=== PATIENT | female | born 2000 | race Two or more races ===

== ENCOUNTER 2018-12-20 21:01 | Emergency (ER) | payer OTHER ==
[2018-12-20 21:14] VITALS: BP 151/95
--- NOTE | 2018-12-20 22:20 | ER Document Report ---
ED Medical Screen (RME) - General Chief Complaint: Dog Bite Stated Complaint: DOG BITE/SCRATCHES Time Seen by Provider: 12/20/18 21:31 Mode of Arrival: Ambulatory Information source: Patient Notes: 18-year-old female presented to ED for complaint of scratches to arms and feet after a rescue dog scratched her with his teeth on Friday. She states she took the dog to the [facility] on Friday to get its rabies shots because that is when they were do and they told her she needed to wait 10 days before getting the shots. She states she has not had any signs or symptoms or infection any fevers but today she started having body aches headaches and chest pain and she is concerned these are symptoms of rabies. She states the dog has been in foster care for the over a month but the dog had not had any shots. She states before the rescue care the dog was a stray. I have consulted Dr. Gordillo he stated he would take over the care of the patient. I have greeted and performed a rapid initial assessment of this patient. A comprehensive ED assessment and evaluation of the patient, analysis of test results and completion of medical decision making process will be conducted by an additional ED providers. Dictation of this chart was performed using voice recognition software; therefore, there may be some unintended grammatical errors. TRAVEL OUTSIDE OF THE [place] IN LAST 30 DAYS: Yes - [place] Past Medical History Renal/ Medical History: Denies: Hx Peritoneal Dialysis Physical Exam - Vital signs Vitals: Temp Pulse Resp BP Pulse Ox 98.9 F 110 H 18 151/95 H 98 12/20/18 21:12 12/20/18 21:12 12/20/18 21:12 12/20/18 21:12 12/20/18 21:12 Course - Vital Signs Vital signs: Temp Pulse Resp BP Pulse Ox 98.9 F 110 H 18 151/95 H 98 12/20/18 21:12 12/20/18 21:12 12/20/18 21:12 12/20/18 21:12 12/20/18 21:12
--- NOTE | 2018-12-21 00:25 | ER Document Report ---
ED Animal Bite - General Chief Complaint: Dog Bite Stated Complaint: DOG BITE/SCRATCHES Time Seen by Provider: 12/20/18 21:31 Primary Care Provider: TAMI LEONE MD [Primary Care Provider] - Follow up as needed Mode of Arrival: Ambulatory Information source: Patient TRAVEL OUTSIDE OF THE [place] IN LAST 30 DAYS: Yes - [place] - HPI Location of injury: RUE, RLE Severity of injury: Scratched Onset: Other - 5 days ago. Where did incident occur: Home Quality of pain: No pain Pain Level: Denies Severity: None Context of attack: Playing with animal Summary of what happened: Patient said her puppy which she adopted from a assisted 6 days ago scrached her on her right upper and lower extremity 5 days ago. The abrasion is healing well but she came in because she is afraid of rabies. The puppy lives with her in the house. No change in behavior of the dog since the incident. Type of animal: Dog - Puppy. Appearance of animal: Appeared well Animal's immunizations: Unknown Animal captured or known: Yes - Related Data Allergies/Adverse Reactions: No Known Allergies Allergy (Unverified 12/21/18 00:20) Past Medical History - General Information source: Patient - Social History Smoking Status: Never Smoker Family History: Reviewed & Not Pertinent Patient has suicidal ideation: No Patient has homicidal ideation: No Renal/ Medical History: Denies: Hx Peritoneal Dialysis Review of Systems - Review of Systems Constitutional: No symptoms reported EENT: No symptoms reported Cardiovascular: No symptoms reported Respiratory: No symptoms reported Gastrointestinal: No symptoms reported Genitourinary: No symptoms reported Female Genitourinary: No symptoms reported Musculoskeletal: No symptoms reported Skin: Other - Abrasion. Hematologic/Lymphatic: No symptoms reported Neurological/Psychological: No symptoms reported -: Yes All other systems reviewed and negative Physical Exam - Vital signs Vitals: Temp Pulse Resp BP Pulse Ox 98.9 F 110 H 18 151/95 H 98 12/20/18 21:12 12/20/18 21:12 12/20/18 21:12 12/20/18 21:12 12/20/18 21:12 Interpretation: Normal - General General appearance: Appears well, Alert In distress: None - HEENT Head: Normocephalic, Atraumatic Eyes: Normal Pupils: PERRL - Respiratory Respiratory status: No respiratory distress Chest status: Nontender Breath sounds: Normal Chest palpation: Normal - Cardiovascular Rhythm: Regular Heart sounds: Normal auscultation Murmur: No - Abdominal Inspection: Normal Distension: No distension Bowel sounds: Normal Tenderness: Nontender Organomegaly: No organomegaly - Back Back: Normal, Nontender - Extremities General upper extremity: Normal inspection, Nontender, Normal color, Normal ROM, Normal temperature General lower extremity: Normal inspection, Nontender, Normal color, Normal ROM, Normal temperature, Normal weight bearing. No: Jemal's sign - Neurological Neuro grossly intact: Yes Cognition: Normal Orientation: AAOx4 [place] Coma Scale Eye Opening: Spontaneous [place] Coma Scale Verbal: Oriented Jackie Coma Scale Motor: Obeys Commands [place] Coma Scale Total: 15 Speech: Normal Motor strength normal: LUE, RUE, LLE, RLE Sensory: Normal - Psychological Associated symptoms: Normal affect, Normal mood - Skin Skin Temperature: Warm Skin Moisture: Dry Skin Color: Normal Notes: Small abrasion wound on the right forearm and right leg. Wound is healing fine no sign of infection. There is no redness or discharge. Course - Re-evaluation Re-evalutation: 12/21/18 04:18 I reassured the patient and her significant order that after my consultation with the infectious disease specialist to [facility] Dr. Taty Holland, rabies vaccine is not indicated at this time. I also advised her to take the dog to the poultry trimmer tomorrow morning for checkup. She should also follow-up with her primary doctor tomorrow morning. I encouraged her to return to the em ergency room for any other concerns. She should also keep an eye on her dog and if there is any change in behavior she should take the dog immediately to the veterinary for evaluation. - Vital Signs Vital signs: Temp Pulse Resp BP Pulse Ox 98.9 F 110 H 18 151/95 H 98 12/20/18 21:12 12/20/18 21:12 12/20/18 21:12 12/20/18 21:12 12/20/18 21:12 - Transfer of Care Notes: 12/21/18 04:20 I consulted the infectious disease specialist kindergarten paraprofessional at [facility] Dr. Taty Holland. She said that rabies vaccine is not indicated. She recommends discharging the patient home. Discharge - Discharge Clinical Impression: Dog scratch Abrasion forearm Qualifiers: Encounter type: initial encounter Laterality: right Qualified Code(s): S50.811A - Abrasion of right forearm, initial encounter Condition: Stable Disposition: HOME, SELF-CARE Instructions: Abrasions ([facility]), Animal Bites ([facility]) Additional Instructions: Please take your dog with a very tomorrow morning for further evaluation. Also follow-up with your primary doctor tomorrow morning. Rabies vaccine is not indicated at this time. Return to the emergency room if your condition worsens. Referrals: TAMI LEONE MD [Primary Care Provider] - Follow up as needed
== END 2018-12-21 00:36 | disposition home or self-care (01) ==
LOC: ER 21:01
DX: S50.811A Abrasion of right forearm, initial encounter (principal); S91.351A Open bite, right foot, initial encounter; W54.0XXA Bitten by dog, initial encounter
CPT/HCPCS: 99283